=== PATIENT | female | born 1985 | race Caucasian/White ===

== ENCOUNTER 2017-04-04 10:00 | Day surgery (SDC) | payer OTHER ==
[2017-04-03 08:14] VITALS: BMI 34.4
[2017-04-04] MEDS ORDERED: ceFAZolin SODIUM 1 GM VIAL IVPB ONE (12:11)
[2017-04-04] MEDS ORDERED: PROMETHAZINE HCL 25 MG/1 ML VIAL IVPUSH PRN (12:54)
[2017-04-04] MEDS ORDERED: ONDANSETRON 4 MG/2 ML VIAL IVPUSH PRN (12:54)
[2017-04-04] MEDS ORDERED: oxyCODONE HCL 5 MG TABLET PO PRN ×2 (12:54→13:45)
[2017-04-04] MEDS ORDERED: LACTATED RINGERS SOLUTION 1,000 ML IV SCH (13:00)
[2017-04-04] MEDS ORDERED: BUPIVACAINE HCL/PF 0.5% (5MG/ML) 10 ML VIAL ONE (13:00)
--- NOTE | 2017-04-04 13:41 | HP ---
History & Physical Update - History History: No Change - Physical Physical: No Change - Assessment Assessment: No Change - Plan Plan: No Change (Consent signed and witnessed)
--- NOTE | 2017-04-04 13:44 | OP ---
Operative Note - Note: Operative Date: 04/04/17 Pre-Operative Diagnosis: 31 yo P3 desiring permanent sterilization, umbilical hernia Operation: Laparoscopic tubal ligation and Umbilical hernia repair Findings: Normal female anatomy Umbilical hernia Post-Operative Diagnosis: Same as Pre-op Surgeon: Adele Aparicio Assessment Counselor: Santos Thornton Anesthesiologist/VETERINARY RECEPTIONIST: Tianna Engel MD Anesthesia: General Specimens Removed: 1. Bilateral fallopian tubes Estimated Blood Loss (mls): 50 Drains, Volume Out (mls): 500 Fluid Volume Replaced (mls): 700 Operative Report Dictated: Yes
[2017-04-04] MEDS ORDERED: ONDANSETRON 4 MG/2 ML VIAL IVPB PRN (13:45)
[2017-04-04] MEDS ORDERED: ELECTROLYTE-148 SOLN 1,000 ML IV SCH (13:45)
[2017-04-04] MEDS ORDERED: IBUPROFEN 600 MG TABLET (FP) PO PRN (13:45)
[2017-04-04] MEDS ORDERED: IBUPROFEN 800 MG/8 ML IJ IVPB PRN (13:45)
--- NOTE | 2017-04-04 14:48 | OP ---
Operative Note - Note: Operative Date: 04/04/17 Pre-Operative Diagnosis: Umbilical hernia Operation: Open umbilical hernia repair Findings: Incarcerated omentum Post-Operative Diagnosis: Same as Pre-op Surgeon: Santos Thornton Hat Renovator: Adele Aparicio Anesthesia: General Specimens Removed: None Estimated Blood Loss (mls): 10 Operative Report Dictated: Yes
[2017-04-04 15:17] VITALS: TEMP 98.6
--- NOTE | 2017-04-04 15:59 | OP ---
DATE OF OPERATION: 04/04/2017 SURGEON: Cody Thornton MD COLD STORAGE SUPERINTENDENT: Adele Aparicio MD PREOPERATIVE DIAGNOSIS: Umbilical hernia. POSTOPERATIVE DIAGNOSIS: Umbilical hernia with incarcerated omentum. PROCEDURE: Open umbilical hernia repair. SPECIMEN: None. ESTIMATED BLOOD LOSS: 10 mL DRAINS: None. ANESTHESIA: GET. REASON FOR PROCEDURE: This is a 31-year-old female who was scheduled to have a tubal ligation with Dr. Aparicio. On exam, she was found to have an umbilical hernia which was confirmed on exam in the office. Because of this, she was consented for a laparoscopic, possible open umbilical hernia repair with possible mesh at the same time as her tubal ligation. The risks and benefits of the procedure were explained. These included bleeding, infection, recurrence of hernia, AK, DVT, PE, injury to surrounding structures, seroma, and hematoma. She understood and signed informed consent. DESCRIPTION OF PROCEDURE: After Dr. Aparicio had proceeded with her laparoscopic tubal ligation and all trocars were removed, the umbilical incision was extended. This was dissected down to the level of the fascia. All hernia contents were freely cleared from the surrounding fascia. The fascial edges were approximated, and all contents reduced. There was noted to be incarcerated omentum that was freed. Hemostasis was achieved. No. 1 Prolene was used in a figure-of-8 fashion to close the umbilical hernia. The subcutaneous tissue was closed using 3-0 Vicryl, and the skin was closed using 4-0 Biosyn. Patient tolerated the procedure well and transferred to recovery room in stable condition. CODY THORNTON M.D. PATRICK/[id number]
[2017-04-04] MEDS ORDERED: IBUPROFEN 600 MG TABLET (FP) PO ONE (16:26)
[2017-04-04] MEDS ORDERED: oxyCODONE HCL 5 MG TABLET ONE (17:29)
[2017-04-04 18:02] VITALS: BP 113/77; PULSE 60
--- NOTE | 2017-04-06 09:01 | OP ---
DATE OF OPERATION: DATE OF DICTATION: 04/06/2017 PREOPERATIVE DIAGNOSES: A 31-year-old para 3 desiring permanent sterilization and umbilical hernia. POSTOPERATIVE DIAGNOSES: A 31-year-old para 3 desiring permanent sterilization and umbilical hernia. OPERATION: Laparoscopic tubal ligation and umbilical hernia repair. FINDINGS: Normal female anatomy and umbilical hernia. SURGEON: Adele Aparicio MD CLINICAL ASSOC: Santos Thornton MD for laparoscopic tubal ligation portion of the procedure. ANESTHESIOLOGIST: Tianna Engel MD ANESTHESIA: General. SPECIMENS REMOVED: Bilateral fallopian tubes. DESCRIPTION OF THE OPERATIVE PROCEDURE: After assuring informed consent, patient was brought to the operating room where she was placed in dorsal lithotomy position. Abdomen and perineum were prepped and draped in sterile fashion. The uterine manipulator and Gavin catheter were placed under sterile conditions. The 5-mm umbilical incision was created with the 15 blade and Veress needle was placed under controlled condition. The entry was assured with normal saline drop test and subsequently abdomen was insufflated with CO2 gas with appropriately rising pressures. The Optiview 0-degree, 5-mm laparoscope was inserted simultaneously with the 5-mm Optiview trocar. Excellent intraabdominal entry was verified. Two more 5-mm trocars were placed in right and left lower quadrants. Each tube was grasped with atraumatic grasper and 5-mm LigaSure was used to dissect each individual tube off the tuboovarian ligament and uteroovarian ligament and broad ligament. Excellent hemostasis was noted. Each tube was placed in the anterior cul-de-sac. The umbilical incision was extended and atraumatic grasper was used to remove each individual tube directly through the umbilical incision. Subsequent portion of the procedure was done by Dr. Thornton which was umbilical hernia repair which should be dictated separately. The 5-mm trocars were removed and right and left lower quadrant 5-mm trocar incisions were closed with 3-0 Biosyn. The dilute solution of Marcaine was injected into each puncture incision. Estimated blood loss 50 mL. Patient put out 500 mL of urine and received 700 mL of IV fluids. Excellent hemostasis was noted. Instrument and sponge count was correct x2. Patient was brought to the recovery room in stable condition. Robby [id number]
--- NOTE | 2017-04-06 09:06 | PATH ---
Surgical Pathology Report Patient Name: WILLIS MAYA Med. Rec. #: [id number] /Age/Gender: 1985 (Age: 31) / F Account: [id number] Location: [facility] SURGICAL Taken: 04/04/2017 Received: 04/04/2017 Reported: 04/06/2017 Physicians: Adele Aparicio M.D. Specimen(s) Received PORTIONS OF BILATERAL FALLOPIAN TUBES Clinical History Voluntary sterilization with umbilical hernia Final Diagnosis BILATERAL FALLOPIAN TUBES, SALPINGECTOMY: TWO FULL LUMINAL SEGMENTS OF BENIGN FALLOPIAN TUBES INCLUDING FIMBRIATED ENDS. Electronically Signed Yusef Mcelroy M.D. Gross Description Received in formalin labeled "portions of bilateral fallopian tubes," are 2 undesignated, fimbriated fallopian tubes measuring 4.5 and 6.5 cm in length. The outer surfaces are dumont purple and smooth. Sectioning reveals unremarkable lumens. Housekeeper And Laundry Assistant sections are submitted in 4 cassettes as follows: 1-fimbria from shorter tube; 2-cross sections from shorter tube; 3-fimbria from longer tube; 4-cross sections from longer tube. 04/04/2017 saudi04/04/2017
== END 2017-04-04 18:30 | disposition home or self-care (01) ==
LOC: JASU-SURG 10:00
PROVIDERS: ATTEND Obstetrics & Gynecology
PROC: 0UB74ZZ Excision of Bilateral Fallopian Tubes, Percutaneous Endoscopic Approach (ICD-10-PCS; principal; 2017-04-04 11:00)
PROC: 0WQF0ZZ Repair Abdominal Wall, Open Approach (ICD-10-PCS; 2017-04-04 11:00)
DX: Z30.2 Encounter for sterilization (principal); K42.0 Umbilical hernia with obstruction, without gangrene
CPT/HCPCS: 88302-TC; 94760